=== PATIENT | male | born 1970 | race Caucasian/White ===

== ENCOUNTER 2021-12-12 00:32 | Emergency (ER) | payer OTHER ==
[~2021-12-12] VITALS: Ht 170.1 cm; Wt 70.3 kg
[~2021-12-12 00:32] MED LIST: ALBUTEROL0.09 MG/A2 INH; ATARAX25 MG PO; CATAFLAM50 MG PO; CLARITIN-D 10 M1 T21 PO; CLEOCIN150 MG PO; CLINDAMYCIN HC300 MG PO; CYCLOBENZAPRINE10 MG PO; DAYPRO600 M1 PO; DOXYCYCLINE HY100 M3 PO; HYDROCODONE BIT1 T11 PO; IBU800 M1 PO; LOMOTIL 0.025 M1 TA1 PO; MOTRIN800 MG PO; NAPROXEN250 MG PO; NKHM; Nystatin Cream15 GM PO; PHENERGAN25 M1 PO; PREDNICOT20 MG PO; PREDNISONE10 MG PO; PROMETHAZINE25 M1 PO; PROTONIX40 MG PO; ROBAXIN750 MG PO; ROBITUSSIN AC 110 ML PO; TOBREX OPHTH S2.5 ML OPH; ZITHROMAX500 MG PO; ZOFRAN ODT4 MG SL; Zofran4 MG PO
[2021-12-12] MEDS ORDERED: CLINDAMYCIN HC300 MG PO (00:50)
== END 2021-12-12 00:59 | disposition home or self-care (01) ==
LOC: ED
DX: K08.89 Other specified disorders of teeth and supporting structures (principal); Z88.0 Allergy status to penicillin

== ENCOUNTER 2021-12-13 19:11 | Emergency (ER) | payer OTHER ==
[2021-12-13 19:39] LABS: BASO # 0.1 10*3/uL (0.0-0.1); BASO % 1.4 % (0.0-1.0); EOS # 0.1 10*3/uL (0.0-0.4); EOS % 0.7 % (1.0-4.0); HEMATOCRIT 43.9 % (42.0-52.0); LYMPH % 43.7 % (27.0-41.0); MEAN CELL VOLUME 93.8 fl (80.0-94.0); MEAN CORPUSCULAR HGB 33.1 pg (27.0-31.0); MEAN CORPUSCULAR HGB CONC 35.3 g/dl (33.0-37.0); MEAN PLATELET VOLUME 9.5 fl (9.6-12.3); MONO % 13.7 % (3.0-9.0); NEUT # 2.8 10*3/uL (2.3-7.9); NEUT % 40.2 % (47.0-73.0); PLATELET COUNT AUTOMATED 145 10*3/uL (130-400); RED BLOOD COUNT 4.68 10*6/uL (4.50-5.90); RED CELL DISTRI WIDTH 13.1 % (0-14.5); WHITE BLOOD COUNT 6.9 10*3/uL (4.8-10.8)
[2021-12-13 19:56] LABS: ALKALINE PHOSPHATASE 71 U/L (45-117); BUN 4 mg/dl (7-24); CHLORIDE 99 mmol/L (98-107); CREATININE 0.59 mg/dL (0.70-1.30); POTASSIUM 3.7 mmol/L (3.5-5.1); SGOT/AST 58 IU/L (3-35); SGPT/ALT 54 U/L (12-78); SODIUM 135 mmol/L (136-145); TOTAL PROTEIN 7.9 gm/dL (6.4-8.2)
[2021-12-13 20:07] LABS: ACT PARTIAL THROMBO TIME 29.9 SECONDS (20.0-32.1); INTERNATIONAL NORM RATIO 0.9 (2.0-3.5)
== END 2021-12-13 20:10 | disposition left against medical advice (07) ==
LOC: ED 19:11
PROVIDERS: Emergency Medicine
DX: R07.89 Other chest pain (principal); Z53.21 Procedure and treatment not carried out due to patient leaving prior to being seen by health care provider

== ENCOUNTER → 2022-03-21 | Outpatient (CLI) | payer OTHER ==
[2022-03-21 13:05] LABS: BASO # 0.1 10*3/uL (0.0-0.1); BASO % 1.9 % (0.0-1.0); EOS # 0.1 10*3/uL (0.0-0.4); EOS % 0.9 % (1.0-4.0); HEMATOCRIT 50.3 % (42.0-52.0); LYMPH # 2.4 10*3/uL (1.3-4.4); LYMPH % 44.7 % (27.0-41.0); MEAN CELL VOLUME 94.5 fl (80.0-94.0); MEAN CORPUSCULAR HGB 32.9 pg (27.0-31.0); MEAN CORPUSCULAR HGB CONC 34.8 g/dl (33.0-37.0); MEAN PLATELET VOLUME 10.4 fl (9.6-12.3); MONO # 0.7 10*3/uL (0.1-1.0); MONO % 12.3 % (3.0-9.0); NEUT # 2.1 10*3/uL (2.3-7.9); NEUT % 39.8 % (47.0-73.0); PLATELET COUNT AUTOMATED 88 10*3/uL (130-400); RED BLOOD COUNT 5.32 10*6/uL (4.50-5.90); RED CELL DISTRI WIDTH 12.4 % (0-14.5); WHITE BLOOD COUNT 5.3 10*3/uL (4.8-10.8)
[2022-03-21 13:29] LABS: BUN 4 mg/dl (7-24); CHLORIDE 101 mmol/L (98-107); CHOLESTEROL 190 mg/dL (<200); CREATININE 0.52 mg/dL (0.70-1.30); SGOT/AST 120 IU/L (3-35); SGPT/ALT 124 U/L (12-78); SODIUM 132 mmol/L (136-145); TRIGLYCERIDES 53 mg/dl (<150); URIC ACID 5.2 mg/dL (3.5-7.2)
[2022-03-21 13:31] LABS: ALKALINE PHOSPHATASE 66 U/L (45-117)
[2022-03-21 13:39] LABS: LDL CHOLESTEROL 37 mg/dL (9-159)
[2022-03-22 07:38] LABS: RHEUMATOID FACTOR 13.6 IU/mL (<14.0)
== END | disposition home or self-care (01) ==
LOC: LAB 12:23
PROVIDERS: ATTEND Nurse Practitioner Family
DX: F41.9 Anxiety disorder, unspecified (principal); M25.50 Pain in unspecified joint; R03.0 Elevated blood-pressure reading, without diagnosis of hypertension; R63.4 Abnormal weight loss

== ENCOUNTER → 2022-07-25 | Outpatient (CLI) | payer OTHER | END | disposition home or self-care (01) | LOC: RAD 13:43 | PROVIDERS: ATTEND Nurse Practitioner Family | DX: R63.4 Abnormal weight loss (principal); F17.210 Nicotine dependence, cigarettes, uncomplicated ==

== ENCOUNTER 2023-03-06 14:36 | Emergency (ER) | payer OTHER ==
[~2023-03-06] VITALS: Ht 170.1 cm; Wt 68.0 kg
[2023-03-06] MEDS ORDERED: CETIRIZINE HYDR10 MG PO (14:57)
[2023-03-06] MEDS ORDERED: AMLODIPINE BESYL5 MG PO (14:58)
[2023-03-06] MEDS ORDERED: HYDROCODONE-AC1 EAC1 PO (16:51)
== END 2023-03-06 16:56 | disposition home or self-care (01) ==
LOC: ED 14:36
DX: S92.002A Unspecified fracture of left calcaneus, initial encounter for closed fracture (principal); Z88.0 Allergy status to penicillin; Z87.891 Personal history of nicotine dependence; W11.XXXA Fall on and from ladder, initial encounter; Y93.89 Activity, other specified; Y92.009 Unspecified place in unspecified non-institutional (private) residence as the place of occurrence of the external cause; Y99.8 Other external cause status

== ENCOUNTER → 2023-03-20 | Outpatient (CLI) | payer OTHER ==
[~2023-03-20] MED LIST changes: +AMLODIPINE BESYL5 MG PO; +CETIRIZINE HYDR10 MG PO; +HYDROCODONE-AC1 EAC1 PO
== END | disposition home or self-care (01) ==
LOC: ORTHO 01:12
PROVIDERS: ATTEND Orthopaedic Surgery
DX: S92.045A Nondisplaced other fracture of tuberosity of left calcaneus, initial encounter for closed fracture (principal); S92.002A Unspecified fracture of left calcaneus, initial encounter for closed fracture; M79.89 Other specified soft tissue disorders; M76.62 Achilles tendinitis, left leg; X58.XXXA Exposure to other specified factors, initial encounter; Y93.89 Activity, other specified; Y92.89 Other specified places as the place of occurrence of the external cause; Y99.8 Other external cause status

== ENCOUNTER → 2023-04-17 | Outpatient (CLI) | payer OTHER | END | disposition home or self-care (01) | LOC: ORTHO 02:05 | PROVIDERS: ATTEND Orthopaedic Surgery | DX: S92.045D Nondisplaced other fracture of tuberosity of left calcaneus, subsequent encounter for fracture with routine healing (principal); X58.XXXD Exposure to other specified factors, subsequent encounter ==

== ENCOUNTER → 2023-05-20 | Outpatient (CLI) | payer OTHER | END | disposition home or self-care (01) | LOC: ORTHO 01:41 | PROVIDERS: ATTEND Orthopaedic Surgery | DX: S92.045D Nondisplaced other fracture of tuberosity of left calcaneus, subsequent encounter for fracture with routine healing (principal); X58.XXXD Exposure to other specified factors, subsequent encounter ==

== ENCOUNTER 2023-11-07 19:31 | Emergency (ER) | payer OTHER ==
[~2023-11-07] VITALS: Ht 170.1 cm; Wt 63.5 kg
[2023-11-07] MEDS ORDERED: CLINDAMYCIN HCL 300 MG CAPSULE PO ONE (19:50)
[2023-11-07] MEDS ORDERED: Acetaminophen/Hydrocodone 5 MG/325 MG TABLET PO ONE (19:50)
[2023-11-07] MEDS ORDERED: Ondansetron Hydrochloride 4 MG TAB SL ONE (19:50)
== END 2023-11-07 19:59 | disposition home or self-care (01) ==
LOC: ED 19:31
DX: K02.9 Dental caries, unspecified (principal); K08.89 Other specified disorders of teeth and supporting structures; Z88.0 Allergy status to penicillin

== ENCOUNTER 2023-12-03 10:15 | Emergency (ER) | payer OTHER ==
[~2023-12-03] VITALS: Ht 170.1 cm; Wt 63.0 kg
[2023-12-03] MEDS ORDERED: ACETAMINOPHEN 325 MG TAB PO ONE (10:40)
== END 2023-12-03 11:57 | disposition home or self-care (01) ==
LOC: ED 10:15
DX: M25.561 Pain in right knee (principal); M25.562 Pain in left knee; R22.2 Localized swelling, mass and lump, trunk; M25.551 Pain in right hip; M19.90 Unspecified osteoarthritis, unspecified site; F17.200 Nicotine dependence, unspecified, uncomplicated; Z88.0 Allergy status to penicillin; Z79.899 Other long term (current) drug therapy; W18.39XA Other fall on same level, initial encounter; Y93.89 Activity, other specified; Y92.89 Other specified places as the place of occurrence of the external cause; Y99.8 Other external cause status

== ENCOUNTER → 2025-04-12 | Outpatient (CLI) | payer OTHER | END | disposition home or self-care (01) | LOC: US 01:47 | PROVIDERS: ATTEND Nurse Practitioner Family | DX: K76.0 Fatty (change of) liver, not elsewhere classified (principal); F17.210 Nicotine dependence, cigarettes, uncomplicated ==